=== PATIENT | female | born 1955 | race Caucasian/White ===

== ENCOUNTER 2016-11-02 17:44 | Emergency (ER) | payer BC ==
[2016-11-02] MEDS ORDERED: HYDROmorphone* 1 MG/ML 1 ML SYR IV SLOW PU ONE (18:50)
[2016-11-02] MEDS ORDERED: Ondansetron INJ* 2 MG/ML VIAL IV ONE (18:50)
[2016-11-02] MEDS ORDERED: NS 0.9% 1000 ML* 1,000 ML IV ONE (18:50)
[2016-11-02 19:27] LABS: Hematocrit 48 % (35-47); Hemoglobin 15.7 g/dl (12.0-16.0); Mean Corpuscular HGB Conc 33 g/dl (31-36); Mean Corpuscular Hemoglobin 31 pg (27-31); Mean Corpuscular Volume 92 fL (80-97); Mean Platelet Volume 8 um3 (7.4-10.4); Red Blood Count 5.15 10^6/ul (4.0-5.4); Red Cell Distribution Width 14 % (10.5-15); White Blood Count 9.3 10^3/ul (3.5-10.8)
[2016-11-02 19:43] LABS: Albumin 4.3 g/dL (3.2-5.2); BUN/Creatinine Ratio 20.8 (8-20); C Reactive Protein 4.35 mg/L (< 5.00); Calcium 9.4 mg/dL (8.6-10.3); EGFR African American 98.3 (>60); EGFR Non-African American 76.5 (>60); Globulin 3.1 g/dL (2-4); Total Bilirubin 0.3 mg/dL (0.2-1.0); Total Protein 7.4 g/dL (6.4-8.9)
[2016-11-02] MEDS ORDERED: Ciprofloxacin TAB* 500 MG PO ONE (19:59)
--- NOTE | 2016-11-02 19:59 | ED ---
Del Hernandez Benjamin, scribed for Mariia Strickland MD on 11/02/16 at 1840 . Abdominal Pain/Female - HPI Summary HPI Summary: 61yo female c/o feeling very gassy last night then sudden abdominal pain since this morning. Pain was 2-3 out of 10 at 10am, and after 12pm pain started to worsen. Now 8-9 out of 10 pain scale. Pt also reports pencil thin stool. Denies fever, dysuria, CP or SOB. Pt has several abdominal surgery hx, including partial hysterectomy, and appendectomy. - History of Current Complaint Chief Complaint: EDAbdPain Stated Complaint: ABD PAIN Time Seen by Provider: 11/02/16 18:11 Hx Obtained From: Patient Onset/Duration: Lasting Hours, Still Present, Worse Since - increasing worsening Timing: Constant Severity Initially: Mild Severity Currently: Moderate Pain Intensity: 8 Pain Scale Used: 0-10 Numeric Location: Diffuse Radiates: No Aggravating Factor(s): Nothing Alleviating Factor(s): Nothing Associated Signs and Symptoms: Positive: Other: - pencil thin stool. Negative: Vomiting, Diarrhea Allergies/Adverse Reactions: Allergies Allergy/AdvReac Type Severity Reaction Status Date / Time Sulfa Antibiotics Allergy Hives Verified 01/10/14 09:01 PMH/Surg Hx/FS Hx/Imm Hx Endocrine/Hematology History: Reports: Hx Thyroid Disease Denies: Hx Anemia Cardiovascular History: Reports: Hx Hypertension GI History: Denies: Hx Jaundice Musculoskeletal History: Reports: Hx Rheumatoid Arthritis - SINCE 13 - Cancer History Hx Chemotherapy: No Hx Radiation Therapy: No - Surgical History Surgery Procedure, Year, and Place: hysterrectomy; right kneecap removed 2003; tonsils; appe, hernia and fatty cyst removed Infectious Disease History: No Infectious Disease History: Reports: Hx Shingles Denies: History Other Infectious Disease, Traveled Outside the [place] in Last 30 Days - Family History Known Family History: Negative: Cardiac Disease, Diabetes - Social History Occupation: Employed Full-time Lives: Alone Alcohol Use: Rare Substance Use Type: Reports: None Smoking Status (MU): Never Smoked Tobacco Review of Systems Constitutional: Negative Eyes: Negative ENT: Negative Cardiovascular: Negative Negative: Chest Pain Respiratory: Negative Negative: Shortness Of Breath Positive: Abdominal Pain, Other - bloated stomach Genitourinary: Negative Musculoskeletal: Negative Skin: Negative Neurological: Negative Psychological: Normal All Other Systems Reviewed And Are Negative: Yes Physical Exam Triage Information Reviewed: Yes Vital Signs On Initial Exam: Initial Vitals Temp Pulse Resp BP Pulse Ox 98.3 F 101 20 174/98 93 11/02/16 17:47 11/02/16 17:47 11/02/16 17:47 11/02/16 17:47 11/02/16 17:47 Vital Signs Reviewed: Yes Appearance: Positive: Well-Appearing, No Pain Distress, Well-Nourished Skin: Positive: Warm, Skin Color Reflects Adequate Perfusion, Dry Head/Face: Positive: Normal Head/Face Inspection Eyes: Positive: EOMI, MASOUD ENT: Positive: Normal ENT inspection Neck: Positive: Supple, Nontender Respiratory/Lung Sounds: Positive: Clear to Auscultation, Breath Sounds Present Cardiovascular: Positive: Tachycardia Abdomen Description: Positive: Soft, Other: - LLQ tenderness Bowel Sounds: Positive: Present Musculoskeletal: Positive: Strength/ROM Intact Neurological: Positive: Sensory/Motor Intact, Alert, Oriented to Person Place, Time, CN Intact II-III Psychiatric: Positive: Affect/Mood Appropriate - [place] Coma Scale Coma Scale Total: 15 Diagnostics - Vital Signs Vital Signs Temp Pulse Resp BP Pulse Ox 11/02/16 18:00 103 19 153/100 92 11/02/16 17:56 98.3 F 101 20 174/98 92 11/02/16 17:53 95 10 174/98 94 11/02/16 17:51 174/109 11/02/16 17:47 98.3 F 101 20 174/98 93 - Laboratory Lab Results: Lab Results 11/02/16 11/02/16 11/02/16 Range/Units 19:19 19:19 19:19 WBC 9.3 (3.5-10.8) 10^3/ul RBC 5.15 (4.0-5.4) 10^6/ul Hgb 15.7 (12.0-16.0) g/dl Hct 48 H (35-47) % MCV 92 (80-97) fL MCH 31 (27-31) pg MCHC 33 (31-36) g/dl RDW 14 (10.5-15) % Plt Count 276 (150-450) 10^3/ul MPV 8 (7.4-10.4) um3 Neut % (Auto) 80.3 (38-83) % Lymph % (Auto) 12.5 L (25-47) % [place] % (Auto) 6.0 (1-9) % Eos % (Auto) 0.3 (0-6) % Baso % (Auto) 0.9 (0-2) % Absolute Neuts (auto) 7.4 (1.5-7.7) 10^3/ul Absolute Lymphs (auto) 1.2 (1.0-4.8) 10^3/ul Absolute Monos (auto) 0.6 (0-0.8) 10^3/ul Absolute Eos (auto) 0 (0-0.6) 10^3/ul Absolute Basos (auto) 0.1 (0-0.2) 10^3/ul Absolute Nucleated RBC 0.01 10^3/ul Nucleated RBC % 0.1 Sodium 139 (133-145) mmol/L Potassium 4.0 (3.5-5.0) mmol/L Chloride 104 (101-111) mmol/L Carbon Dioxide 29 (22-32) mmol/L Anion Gap 6 (2-11) mmol/L BUN 16 (6-24) mg/dL Creatinine 0.77 (0.51-0.95) mg/dL Est GFR ( Amer) 98.3 (>60) Est GFR (Non-Af Amer) 76.5 (>60) BUN/Creatinine Ratio 20.8 H (8-20) Glucose 139 H (70-100) mg/dL Lactic Acid 2.0 (0.5-2.0) mmol/L Calcium 9.4 (8.6-10.3) mg/dL Total Bilirubin 0.30 (0.2-1.0) mg/dL AST 28 (13-39) U/L ALT 23 (7-52) U/L Alkaline Phosphatase 79 (34-104) U/L C-Reactive Protein 4.35 (< 5.00) mg/L Total Protein 7.4 (6.4-8.9) g/dL Albumin 4.3 (3.2-5.2) g/dL Globulin 3.1 (2-4) g/dL Albumin/Globulin Ratio 1.4 (1-3) Lipase 47 (11.0-82.0) U/L Result Diagrams: 11/02/16 19:19 11/02/16 19:19 Lab Statement: Any lab studies that have been ordered have been reviewed, and results considered in the medical decision making process. Abdominal Pain Fem Course/Dx - Course Course Of Treatment: Reviewed pt's medications list and allergies. High blood pressure noted. Pt with family hx of diverticulitis, with pencil thin stools/ constipation and llq pain. We discussed at length doing a CT abd/pelvis and both agreed that with neg cbc and neg crp that the first course of action would be antibiotics. Pt getting a dose of zosyn and pain meds here and abx and pain meds sent to pharmacy. - Diagnoses Provider Diagnoses: Diverticulitis Discharge - Discharge Plan Condition: Stable Disposition: HOME Prescriptions: Ciprofloxacin TAB* [Cipro 500 MG TAB*] 500 mg PO BID #14 tab Ciprofloxacin TAB* [Cipro 500 MG TAB*] 500 mg PO BID #14 tab HYDROcodone/ACETAMIN 5-325 MG* [[place] 5-325 TAB*] 2 tab PO Q4H PRN #26 tab MDD 12 PRN Reason: Pain Hydrocodone-Acetaminophen [[place] 5-325 mg] 2 tab PO QID #26 tab MDD 8 Metronidazole [Flagyl 500 MG TAB] 500 mg PO QID #28 tab Metronidazole [Flagyl 500 MG TAB] 500 mg PO QID #28 tab Patient Education Materials: Diverticulitis (ED) Referrals: Jesusita Vann MD [Primary Care Provider] - The documentation as recorded by the Del butler Benjamin accurately reflects the service I personally performed and the decisions made by me, Mariia Strickland MD.
[2016-11-02] MEDS ORDERED: metroNIDAZOLE TAB* 250 MG PO ONE (20:00)
[2016-11-02] MEDS ORDERED: HYDROcodone/ACETAMIN 5-325 MG* 1 TAB PO ONE (20:00)
[2016-11-02 21:26] LABS: Urine Bacteria Absent (Absent); Urine Bilirubin Negative (Negative); Urine Glucose Negative (Negative); Urine Nitrite Negative (Negative)
[2016-11-02 22:09] VITALS: BP 128/79
== END 2016-11-02 22:09 | disposition home or self-care (01) ==
LOC: ED 17:44
DX: K57.92 Diverticulitis of intestine, part unspecified, without perforation or abscess without bleeding (principal); I10 Essential (primary) hypertension; M06.9 Rheumatoid arthritis, unspecified; Z88.2 Allergy status to sulfonamides; E07.9 Disorder of thyroid, unspecified
CPT/HCPCS: 36415; 80053; 81003; 81015; 83605; 83690; 85025; 86140; 87086; 96360; 96374; 96375; 99283; A9270-GY; J1170; J2405; J2543

== ENCOUNTER 2017-04-07 10:22 | Emergency (ER) | payer BC ==
[2017-04-07 11:26] LABS: ABS Basophils 0.1 10^3/ul (0-0.2); ABS Eosinophils 0.2 10^3/ul (0-0.6); ABS Lymphocytes 2.1 10^3/ul (1.0-4.8); ABS Monocytes 0.7 10^3/ul (0-0.8); ABS Neutrophils 3.1 10^3/ul (1.5-7.7); ABS Nucleated RBC 0 10^3/ul; Eosinophil % 2.6 % (0-6); Hematocrit 43 % (35-47); Hemoglobin 14.1 g/dl (12.0-16.0); Lymphocyte % 33.6 % (25-47); Mean Corpuscular HGB Conc 33 g/dl (31-36); Mean Corpuscular Hemoglobin 30 pg (27-31); Mean Corpuscular Volume 91 fL (80-97); Mean Platelet Volume 8 um3 (7.4-10.4); Nucleated Red Blood Cells % 0.2; Platelet Count 267 10^3/ul (150-450); Red Blood Count 4.68 10^6/ul (4.0-5.4); Red Cell Distribution Width 14 % (10.5-15); White Blood Count 6.2 10^3/ul (3.5-10.8)
[2017-04-07 11:41] LABS: INR 0.9 (0.77-1.02)
--- NOTE | 2017-04-07 11:53 | RAD ---
HISTORY: Hypertension COMPARISONS: December 26, 2005 VIEWS: 1: frontal portable view of the chest at 11:33 AM FINDINGS: LINES AND TUBES: None. CARDIOMEDIASTINAL SILHOUETTE: The cardiomediastinal silhouette is normal for portable technique. PLEURA: The costophrenic angles are sharp. No pleural abnormalities are noted. LUNG PARENCHYMA: The lungs are clear. ABDOMEN: The upper abdomen is clear. There is no subphrenic gas. BONES AND SOFT TISSUES: No bone or soft tissue abnormalities are noted. IMPRESSION: NO ACTIVE CARDIOPULMONARY DISEASE.
[2017-04-07 11:57] LABS: EGFR Non-African American 75.3 (>60)
[2017-04-07 13:34] VITALS: BP 152/93
--- NOTE | 2017-04-07 14:19 | ED ---
Steven Hernandez Stephanie, scribed for Roger Malik MD on 04/07/17 at 1142 . Complex/Multi-Sys Presentation - HPI Summary HPI Summary: The pt is a 61 y/o F presenting to the ED with c/o pain in a mass near her L jaw beginning at approximately 32:59. The pt reports a mass within her cheek that feels swollen. Symptoms include HTN, and pain and swelling over the mass in her cheek. The pt denies fever, diaphoresis, CP, nausea, and SOB. She had jaw surgery to correct an under bite years ago and reports having completed a stress test 5 years ago that resulted as normal. She reports superficial blood clots in her R leg and pain in her posterior R knee. - History Of Current Complaint Chief Complaint: EDHypertension Time Seen by Provider: 04/07/17 10:46 Hx Obtained From: Patient Onset/Duration: Still Present Timing: Constant Associated Signs And Symptoms: Positive: Other - Pain and swelling over mass in her cheek. Negative: SOB, Chest Pain, Nausea, Fever, Diaphoresis - Allergies/Home Medications Allergies/Adverse Reactions: Allergies Allergy/AdvReac Type Severity Reaction Status Date / Time Sulfa Antibiotics Allergy Hives Verified 01/10/14 09:01 PMH/Surg Hx/FS Hx/Imm Hx Endocrine/Hematology History: Reports: Hx Thyroid Disease Denies: Hx Anemia Cardiovascular History: Reports: Hx Hypertension GI History: Denies: Hx Jaundice Musculoskeletal History: Reports: Hx Rheumatoid Arthritis - SINCE 13 - Cancer History Hx Chemotherapy: No Hx Radiation Therapy: No - Surgical History Surgery Procedure, Year, and Place: hysterrectomy; right kneecap removed 2003; tonsils; appe, hernia and fatty cyst removed Infectious Disease History: No Infectious Disease History: Reports: Hx Shingles Denies: History Other Infectious Disease, Traveled Outside the [place] in Last 30 Days - Family History Known Family History: Negative: Cardiac Disease, Diabetes - Social History Occupation: Employed Full-time Lives: Alone Alcohol Use: Weekly Substance Use Type: Reports: None Hx Tobacco Use: No Smoking Status (MU): Never Smoked Tobacco Review of Systems Positive: Other - Positive: HTN, pain and swelling over mass on L jaw. . Negative: Fever, Skin Diaphoresis Negative: Chest Pain Negative: Nausea Positive: Other - Pain behind L knee All Other Systems Reviewed And Are Negative: Yes Physical Exam - Summary Physical Exam Summary: General: well-appearing, no pain distress Skin: warm, color reflects adequate perfusion, dry Head: normal Eyes: EOMI, MASOUD ENT: normal Neck: supple, nontender Respiratory: CTA, breath sounds present Cardiovascular: tachycardic Abdomen: soft, nontender Bowel: present Musculoskeletal: normal, strength/ROM intact Neurological: normal, sensory/motor intact, A&O x3 Psychological: affect/mood appropriate Triage Information Reviewed: Yes Vital Signs On Initial Exam: Initial Vitals Temp Pulse Resp BP Pulse Ox 97.8 F 110 20 169/107 98 04/07/17 10:31 04/07/17 10:31 04/07/17 10:31 04/07/17 10:31 04/07/17 10:31 Vital Signs Reviewed: Yes - [place] Coma Scale Coma Scale Total: 15 Diagnostics - Vital Signs Vital Signs Temp Pulse Resp BP Pulse Ox 04/07/17 11:00 102 130/82 96 04/07/17 10:50 111 96 04/07/17 10:47 108 17 150/93 04/07/17 10:31 97.8 F 110 20 169/107 98 - Laboratory Lab Results: Lab Results 04/07/17 Range/Units 11:14 WBC 6.2 (3.5-10.8) 10^3/ul RBC 4.68 (4.0-5.4) 10^6/ul Hgb 14.1 (12.0-16.0) g/dl Hct 43 (35-47) % MCV 91 (80-97) fL MCH 30 (27-31) pg MCHC 33 (31-36) g/dl RDW 14 (10.5-15) % Plt Count 267 (150-450) 10^3/ul MPV 8 (7.4-10.4) um3 Neut % (Auto) 50.7 (38-83) % Lymph % (Auto) 33.6 (25-47) % [place] % (Auto) 12.1 H (1-9) % Eos % (Auto) 2.6 (0-6) % Baso % (Auto) 1.0 (0-2) % Absolute Neuts (auto) 3.1 (1.5-7.7) 10^3/ul Absolute Lymphs (auto) 2.1 (1.0-4.8) 10^3/ul Absolute Monos (auto) 0.7 (0-0.8) 10^3/ul Absolute Eos (auto) 0.2 (0-0.6) 10^3/ul Absolute Basos (auto) 0.1 (0-0.2) 10^3/ul Absolute Nucleated RBC 0 10^3/ul Nucleated RBC % 0.2 Result Diagrams: 04/07/17 11:14 04/07/17 11:14 Lab Statement: Any lab studies that have been ordered have been reviewed, and results considered in the medical decision making process. - Radiology CXR Xray Interpretation: No Acute Changes Radiology Interpretation Completed By: Radiologist - NO ACTIVE CARDIOPULMONARY DISEASE. - EKG 11:06 EKG Rhythm: Sinus Rhythm - [address] Segment: Normal Ectopy: None Complex Multi-Symp Course/Dx Course Of Treatment: Medications reviewed. DISCUSSED RESULTS WITH PATIENT. SHE HAS NOT HAD ANY CHEST PAIN AND THE AREA OF PAIN IN THE MOUTH IS A SWOLLEN AREA THAT IS TENDER TO PALPATION. F/U PMD; RETURN IF WORSE. - Diagnoses Provider Diagnoses: Acute oral pain, Hypertension Discharge - Discharge Plan Condition: Stable Disposition: HOME Prescriptions: Penicillin VK 500 MG TAB(NF) [Penicillin VK 500 mg Tab] 500 mg PO QID #40 tab Patient Education Materials: Hypertension (ED), Toothache (ED) Referrals: Jesusita Vann MD [Primary Care Provider] - Additional Instructions: FOLLOW UP WITH YOUR DOCTOR. RETURN TO THE EMERGENCY DEPARTMENT FOR ANY WORSENING OF YOUR CONDITION OR QUESTIONS OR CONCERNS. The documentation as recorded by the Steven butler Stephanie accurately reflects the service I personally performed and the decisions made by , Roger Malik MD.
[2017-04-07 14:40] LABS: Urine Appearance Clear; Urine Blood Negative (Negative); Urine Color Straw; Urine Ketones Negative (Negative); Urine Protein Negative (Negative); Urine Specific Gravity 1.008 (1.010-1.030); Urine Urobilinogen Negative (Negative)
== END 2017-04-07 14:27 | disposition home or self-care (01) ==
LOC: ED 10:22
DX: K13.79 Other lesions of oral mucosa (principal); M25.562 Pain in left knee; I10 Essential (primary) hypertension; I82.401 Acute embolism and thrombosis of unspecified deep veins of right lower extremity; E07.9 Disorder of thyroid, unspecified; M06.9 Rheumatoid arthritis, unspecified; Z90.710 Acquired absence of both cervix and uterus; Z88.2 Allergy status to sulfonamides
CPT/HCPCS: 36415; 71045; 80053; 81003; 83735; 83880; 84443; 84484; 85025; 85610; 85730; 86140; 93005; 99283

== ENCOUNTER 2018-07-03 10:35 | Day surgery (SDC) | payer BC ==
--- NOTE | 2018-06-27 14:25 | HP ---
CC: Dr. Lange; Dr. Jesusita Vann* PREOPERATIVE HISTORY AND PHYSICAL: DATE OF ADMISSION: 07/03/18 DATE OF PREOPERATIVE HISTORY AND PHYSICAL EXAMINATION: 06/27/18 This patient is scheduled for same-day surgery admission by Dr. Lange on 07/03/18. ATTENDING SURGEON: Dr. Joe Lange* (dictated by Jana Jeter NP). CHIEF COMPLAINT: Lipoma, right upper back. HISTORY OF PRESENT ILLNESS: The patient is a 62-year-old female referred to Dr. Lange from Dr. Jesusita Vann for a soft tissue mass of the right back overlying the area of the scapula. She has had this for about 10 years. She noted itching and soreness recently; it bothers her when she sits back and if she moves her right arm. She does not take any medicine for this. She had an outpatient ultrasound that showed an 8 x 3 x 2 x 6.5 cm mass in the atrophic appearing skeletal musculature of the upper back, most likely the trapezius and recommendation was made for either MRI or CT to further assess. CT of the chest on 05/24/18 revealed a lipoma at the inferior margin of the right trapezius. The patient does not report any rapid growth of the mass. Dr. Lange has examined the patient and reviewed the above findings with her and has recommended excision of the lipoma of the right upper back as a same-day surgery procedure. He discussed the nature of the surgical procedure, the rationale for the procedure, the relevant risks and benefits, and today I reviewed the expected postoperative care and recovery. The patient has had a chance to ask questions and stated that she understands the information and is satisfied with the answers given to her questions. She will sign surgical consent on the day of surgery. PAST MEDICAL HISTORY: Significant for hypertension; hypothyroidism; deep vein thrombosis, right lower extremity; rheumatoid arthritis diagnosed at age 13; and urinary frequency. PAST SURGICAL HISTORY: Right knee surgery in 1994 and 1996; ventral hernia repair in 1989; partial hysterectomy; tonsillectomy many years ago. MEDICATIONS: Plaquenil 200 mg 2 tablets daily, venlafaxine ER 150 mg 1 p.o. daily, levothyroxine 75 mcg 1 p.o. daily, oxybutynin ER 5 mg p.o. daily, lisinopril 10 mg p.o. daily, omeprazole 20 mg p.o. daily, lorazepam 0.5 mg p.r.n., clarithromycin 500 mg p.o. b.i.d., penicillin potassium 500 mg p.o. 4 times a day, cyclobenzaprine 5 mg p.o. t.i.d. ALLERGIES: Include NYLON STITCHES; TETRACYCLINE, unspecified reaction; SULFA, unspecified reaction; TRIMOX, unspecified reaction; AMOXIL, unspecified reaction (she can tolerate penicillin). FAMILY HISTORY: Mother is alive at 86 with a history of mild dementia and hypertension. Father at age 60 with a history of myocardial infarction at age 42. No known bleeding tendencies, blood clots, or anesthesia complications. SOCIAL HISTORY: She is employed in [email or web address] at [employer]; she has never been a smoker. She occasionally drinks alcohol and denies use of other substances. REVIEW OF SYSTEMS: Constitutional: No fevers, chills, excessive fatigue, or weight loss. General: No history of anesthesia complications; she does have a history of a deep vein thrombosis in the right lower extremity. She is not currently on anticoagulation. No history of pulmonary embolism. No bleeding tendencies. No blood transfusions. Endocrine: She is treated for multinodular goiter and hypothyroidism; no known diabetes. Hematologic: No easy bruising or bleeding. Respiratory: No dyspnea on exertion. No chronic cough. Cardiovascular: No anginal chest pain or palpitations. Gastrointestinal : No nausea, vomiting, diarrhea, GI bleeding, or constipation, or change in bowel habits. Genitourinary: No dysuria. Musculoskeletal: Osteoarthritis in most joints, followed by Dr. Powell. Integumentary: No chronic rashes or skin changes. Neurologic: No headache or blurred vision or areas of focal weakness. PHYSICAL EXAMINATION GENERAL SURVEY: The patient is a 62-year-old obese female, well developed, in no acute distress. VITAL SIGNS: Height 64 inches, weight 210 pounds. Body mass index 36. Blood pressure 132/78, pulse 76 and regular, respiratory rate 16, temperature 97.2 tympanic. HEENT: Benign. NECK: Supple. No cervical or supraclavicular lymphadenopathy. LUNGS: Breath sounds bilaterally clear and equal. HEART: Regular rate and rhythm. No murmurs or rubs appreciated. ABDOMEN: Active bowel sounds. Soft, obese, well-healed surgical scars, nontender throughout. No obvious masses, organomegaly, or evidence of ventral hernias. BACK: With a visible soft tissue mass, approximately 8 cm in diameter, overlying the right scapula; this moves with abduction and elevation of the right arm; there is moderate tenderness; there is no overlying erythema. PELVIC: Exam deferred. RECTAL: Exam deferred. EXTREMITIES: Warm without edema or skin ulcerations. NEUROLOGIC: Alert and oriented x3, steady gait. SKIN: Warm, dry, intact. IMPRESSION: Mass, right upper back. PLAN: Same-day surgery admission to Dr. Lange' service on 07/03/18, for excision of lipoma, right upper back. ETTA JETER, VP [employer] [id number]/[facility] #: [id number] MTDD
[~2018-07-03 10:35] MED LIST: Buffered Lidocaine 1% SYRIN* 1 ML/SYRINGE INTRADERM ONE; Dexamethasone IV* 4 MG/ML 1 ML (4 MG) IV SLOW PU ONE; DiMENhydriNATE IV* 50 MG/ML VIAL IV PUSH PRN; Famotidine IV* 10 MG/ML 2 ML (20 mg) IV ONE; HYDROcodone/ACETAMIN 5-325 MG* 1 TAB PO PRN; Lactated Ringers 1000 ML Bag* 1,000 ML IV SCH; Naloxone* 0.4 MG/ML 1 ML VIAL IV PRN; fentaNYL* 50 MCG/ML 2 ML VIAL (100 MCG VIAL) IV PRN; oxyCODONE/Acetamin 5/325 MG* TAB PO PRN
[2018-07-03] MEDS ORDERED: Dexamethasone IV* 4 MG/ML 1 ML (4 MG) ONE (12:48)
[2018-07-03] MEDS ORDERED: Famotidine IV* 10 MG/ML 2 ML (20 mg) ONE (12:48)
[2018-07-03] MEDS ORDERED: Heparin VIAL(*) 5000 UNITS/ML VIAL (FIVE THOUSAND) ONE (12:48)
[2018-07-03] MEDS ORDERED: ceFAZolin 2 GM in NS PREMIX(*) 2 GM/100 ML BAG IVPB ONE (12:48)
[2018-07-03] MEDS ORDERED: Propofol* 10 MG/ML 20 ML BTL ONE (12:59)
[2018-07-03] MEDS ORDERED: fentaNYL* 50 MCG/ML 2 ML VIAL (100 MCG VIAL) ONE ×2 (12:59→15:35)
[2018-07-03] MEDS ORDERED: Midazolam* 1 MG/ML 5 ML VIAL (5 MG) ONE (12:59)
[2018-07-03] MEDS ORDERED: Lidocaine 2% PF * 5 ML VIAL ONE (12:59)
[2018-07-03] MEDS ORDERED: hydrALAZINE IV* 20 MG/ML VIAL ONE (13:25)
[2018-07-03] MEDS ORDERED: Bupivacaine 0.5% W/EPI SDV* 30 ML VIAL ONE (13:47)
[2018-07-03] MEDS ORDERED: Lidocaine 1% INJ* 10 MG/ML 30 ML SDV ONE (13:47)
[2018-07-03] MEDS ORDERED: Metoprolol Tartrate IV* 1 MG/ML 5 ML VIAL ONE (14:26)
[2018-07-03] MEDS ORDERED: hydrALAZINE IV* 20 MG/ML VIAL IV SLOW PU ONE (15:00)
[2018-07-03] MEDS ORDERED: Ondansetron INJ* 2 MG/ML VIAL ONE (15:03)
--- NOTE | 2018-07-03 15:49 | BRIEFOPN ---
Brief Operative Note - Surgery Procedures: Operative Note Preoperative Diagnosis: Lipoma of right upper back Postoperative Diagnosis: Same Procedure: Excision of above Anesthesia: MAC/local anesthetic Surgeon: Joe Lange MD Assist: KIRAN Carson EBL: <20 mL Specimen: Lipoma Fluids: LR 300 mL Drains: None. Findings: Uncomplicated excision of lipoma to the right upper back, approximately 5 cm.
[2018-07-03 16:04] VITALS: BP 130/70
--- NOTE | 2018-07-04 21:17 | OP ---
CC: Jesusita Vann MD * DATE OF OPERATION: 07/03/18 - SDS DATE OF : 57 SURGEON: Joe Lange MD CUSTOMER SERVICE LEADER: None. ANESTHESIOLOGIST: Dr. Vera. ANESTHESIA: Local MAC PRE-OP DIAGNOSIS: Lipoma of right upper back. POST-OP DIAGNOSIS: Lipoma of right upper back. OPERATIVE PROCEDURE: Excision of lipoma of the right upper back. ESTIMATED BLOOD LOSS: Minimal. IV FLUIDS: Crystalloid. SPECIMEN: Lipoma. DRAINS: None. COMPLICATIONS: None. COUNTS: The instrument, needle, and sponge counts were correct. DESCRIPTION OF PROCEDURE: The patient was brought to the operating room and placed on the table in a left lateral decubitus position. She was administered intravenous sedation and she was then prepped and draped in the usual sterile fashion. Time-out was performed. Local anesthetic was infiltrated into the skin and soft tissue overlying the palpable right upper back mass. A 7 cm incision was created and subcutaneous tissues were divided with cautery. Fatty mass was encountered beneath the subcutaneous tissues and this extended into the trapezius muscle. The muscle was dissected off the mass preserving as much of it is possible and then the dissection proceeded using combination of sharp and blunt dissection with a cautery to achieve hemostasis in small bleeders. After the mass was entirely dissected free it was submitted to Pathology. Hemostasis was ensured. Irrigation was performed. The wound was closed in 2 layers with 3-0 Vicryl for the subcutaneous tissue, 4-0 Monocryl for the skin in a running subcuticular fashion and Steri-Strips were applied with dry dressing. The patient tolerated the procedure well. She was awakened and transferred to the Recovery in stable condition. [id number]/[id number] #: [id number] MTDD
== END 2018-07-03 16:38 | disposition home or self-care (01) ==
LOC: OR 10:35
PROVIDERS: ATTEND Surgery
DX: D17.9 Benign lipomatous neoplasm, unspecified (principal); I10 Essential (primary) hypertension; E03.9 Hypothyroidism, unspecified; J45.909 Unspecified asthma, uncomplicated; K21.9 Gastro-esophageal reflux disease without esophagitis; Z86.718 Personal history of other venous thrombosis and embolism; M06.9 Rheumatoid arthritis, unspecified
CPT/HCPCS: 88304; J0360; J0690; J1100; J1644; J2250; J2405; J2704; J3010; J3490